=== PATIENT | female | born 1955 | race Caucasian/White ===

== ENCOUNTER 2018-06-01 14:02 | Inpatient (IN) | payer BC, OTHER | END 2018-06-04 16:00 | disposition home or self-care (01) | LOC: ER 14:02 → TELE 06-02 09:41 → TELE-EAST 06-02 18:22 | DX: K92.1 Melena (principal); I26.99 Other pulmonary embolism without acute cor pulmonale; F11.20 Opioid dependence, uncomplicated; N39.0 Urinary tract infection, site not specified; D62 Acute posthemorrhagic anemia; E78.5 Hyperlipidemia, unspecified; K58.9 Irritable bowel syndrome, unspecified; E66.9 Obesity, unspecified; Z68.36 Body mass index [BMI] 36.0-36.9, adult; I10 Essential (primary) hypertension; Z79.01 Long term (current) use of anticoagulants ==